=== PATIENT | female | born 1990 | race Caucasian/White ===

== ENCOUNTER 2019-03-25 18:44 | Emergency (ER) | payer OTHER, SELFPAY ==
--- OUTSIDE RECORDS SUMMARY | 2019-03-25 18:46 | XMS REPORT ---
:1990 Author Organization eClinicalWorks Care Team Providers Name Role Phone Billy Briggs Provider Role Unavailable Allergies, Adverse Reactions, Alerts Substance Reaction Event Type Latex eyes swell Drug Allergy Lisinopril cough Drug Allergy Hydrochlorothiazide Rash Drug Allergy Problems Problem Type Condition Code Onset Dates Condition Status Problem Chronic migraine without aura G43.709 Active without status migrainosus, not intractable Medications Medication Code Code Instructions Start End Status Dosage System Date Date Topiramate ER [facility] 27664791871 50 MG Orally September 27, Active 1 capsule Once a day 2017 Naprosyn [facility] 76186068089 500 MG Orally Active 1 tablet every 12 hrs with food or milk as needed Breo Ellipta [facility] 59625234959 100-25 MCG/INH Active 1 puff Inhalation Once a day Valsartan [facility] 37481965354 80 MG Orally Active 1 tablet Once a day EpiPen 2-Edwin [facility] 34081732140 0.3 MG/0.3ML Active as Injection directed Levocetirizine [facility] 44839242410 5 MG Orally Active 1 tablet Dihydrochloride Once a day in the evening Ventolin HFA [facility] 62950512768 108 (90 Base) Active 2 puffs as MCG/ACT needed Inhalation every 6 hrs Bromfed DM [facility] 87037122686 30-2-10 MG/5ML Active 10 ml as Orally every 4 needed hrs Flonase [facility] 20586794317 50 MCG/ACT Active 1 spray in Nasally Once a each day nostril Ondansetron HCl ND 19290270447 8 MG Orally Active 1 tablet Twice a day Symbicort [facility] 53212757646 160-4.5 MCG/ACT Active 2 puffs Inhalation Twice a day Triamcinolone [facility] 77378823720 0.1 % Active APPLY Acetonide THINLY TO RASH 3 TIMES DAILY NuvaRing [facility] 73514639273 0.12-0.015 Active 1 ring MG/24HR Vaginal Singulair ND 78467283101 10 MG Orally Active 1 tablet Once a day Results No Known Results Summary Purpose eClinicalWorks Submission
--- OUTSIDE RECORDS SUMMARY | 2019-03-25 18:46 | XMS REPORT ---
:1990 Author Organization eClinicalWorks Care Team Providers Name Role Phone Billy Briggs Provider Role Unavailable Allergies No Known Allergies Problems Problem Type Condition Code Onset Dates Condition Status Assessment Chronic migraine without aura G43.709 Active without status migrainosus, not intractable Problem Chronic migraine without aura G43.709 Active without status migrainosus, not intractable Assessment Body mass index (BMI) of 26.0-26.9 Z68.26 Active in adult Assessment Severe persistent acute asthmatic J45.50 Active bronchitis Assessment Elevated blood pressure reading R03.0 Active without diagnosis of hypertension Assessment Poison oak 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 Medications Medication Code Code Instructions Start End Status Dosage System Date Date Topiramate ER [facility] 93926215795 50 MG Orally September 27, Active 1 capsule Once a day 2018 Triamcinolone [facility] 43881457057 0.1 % Active APPLY Acetonide THINLY TO RASH 3 TIMES DAILY Breo Ellipta ND 37633854987 100-25 MCG/INH Active 1 puff Inhalation Once a day ProAir HFA [facility] 34094264007 108 (90 Base) Active 2 puffs as MCG/ACT needed Inhalation every 6 hrs HydrOXYzine HCl ND 18534951056 50 MG Orally October 19, Active 1 ml as every 8 hrs 2018 needed Results No Known Results Summary Purpose eClinicalWorks Submission
--- OUTSIDE RECORDS SUMMARY | 2019-03-25 18:46 | XMS REPORT ---
:1990 Author Organization eClinicalWorks Care Team Providers Name Role Phone Billy Briggs Provider Role Unavailable Allergies No Known Allergies Problems Problem Type Condition Code Onset Dates Condition Status Assessment Chronic migraine without aura G43.709 Active without status migrainosus, not intractable Problem Chronic migraine without aura G43.709 Active without status migrainosus, not intractable Assessment Radiculitis, cervical M54.12 Active Medications Medication Code Code Instructions Start End Status Dosage System Date Date Fioricet [facility] 22537280408 50-300-40 MG October 30October Active 1 capsule Orally every 4 2017 30, as needed hrs 2018 Topiramate ER ND 58966413696 50 MG Orally September 27, Active 1 capsule Once a day 2017 Breo Ellipta [facility] 95200318331 100-25 MCG/INH Active 1 puff Inhalation Once a day HydrOXYzine HCl ND 84585151481 50 MG Orally October 19, Active 1 ml as every 8 hrs 2018 needed Triamcinolone [facility] 27458843527 0.1 % Active APPLY Acetonide THINLY TO RASH 3 TIMES DAILY ProAir HFA [facility] 14552767326 108 (90 Base) Active 2 puffs as MCG/ACT needed Inhalation every 6 hrs Results No Known Results Summary Purpose eClinicalWorks Submission
--- OUTSIDE RECORDS SUMMARY | 2019-03-25 18:46 | XMS REPORT ---
:1990 Author Organization eClinicalWorks Care Team Providers Name Role Phone Noy Mcmanusy Provider Role Unavailable Allergies, Adverse Reactions, Alerts Substance Reaction Event Type Latex eyes swell Drug Allergy Lisinopril cough Drug Allergy Hydrochlorothiazide Rash Drug Allergy Problems Problem Type Condition Code Onset Dates Condition Status Problem Chronic migraine without aura G43.709 Active without status migrainosus, not intractable Problem Essential hypertension I10 Active Assessment Moderate asthma without J45.909 Active complication, unspecified whether persistent Assessment Weight gain R63.5 Active Assessment Chronic migraine without aura G43.709 Active without status migrainosus, not intractable Assessment Essential hypertension I10 Active Medications Medication Code Code Instructions Start End Status Dosage System Date Date Topiramate ER [facility] 24026172383 50 MG Orally September 27, Active 1 capsule Once a day 2017 Breo Ellipta [facility] 38713974332 100-25 MCG/INH Active 1 puff Inhalation Once a day Triamcinolone [facility] 69285128698 0.1 % Active APPLY Acetonide THINLY TO RASH 3 TIMES DAILY losartan ND 15611383166 20 mg PO once a November 20Feb 18, Active one tab day 2017 2018 daily ProAir HFA [facility] 79723439157 108 (90 Base) Active 2 puffs as MCG/ACT needed Inhalation every 6 hrs HydrOXYzine HCl ND 68022278780 50 MG Orally October 19, Active 1 ml as every 8 hrs 2018 needed Results No Known Results Summary Purpose eClinicalWorks Submission
--- NOTE | 2019-03-25 20:55 | EDPHYS ---
Physician Documentation [facility] Name: Gloria Ugarte Age: 28 yrs Sex: Female : 1990 Arrival Date: 03/25/2019 Time: 18:48 Bed 9 Private MD: Unknown, Unknown ED Physician Brett Momin HPI: 03/26 06:18 This 28 yrs old Female presents to ER via Ambulatory with complaints of Ankle tw4 Swelling, Foot Pain. 06:18 The patient presents with an injury. tw4 06:19 The complaints affect the left ankle. Onset: The symptoms/episode began/occurred 3 tw4 day(s) ago. Context: The problem was sustained at home, resulted from an unknown cause. Associated signs and symptoms: The patient has no apparent associated signs or symptoms. Severity of symptoms: At their worst the symptoms were mild, in the emergency department the symptoms are unchanged. The patient has not experienced similar symptoms in the past. 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 - Social history:: Smoking status: Patient/guardian denies using tobacco. - Ebola Screening: : Patient denies travel to an Ebola-affected area in the 21 days before illness onset. ROS: 03/26 06:19 Constitutional: Negative for fever, chills, and weight loss, Eyes: Negative for injury, tw4 pain, redness, and discharge. Cardiovascular: Negative for chest pain, palpitations, and edema, Respiratory: Negative for shortness of breath, cough, wheezing, and pleuritic chest pain, Abdomen/GI: Negative for abdominal pain, nausea, vomiting, diarrhea, and constipation, Back: Negative for injury and pain. MS/extremity: Positive for injury or acute deformity, decreased range of motion, swelling, Negative for abrasion, bite. Exam: 06:19 Constitutional: This is a well developed, well nourished patient who is awake, alert, tw4 and in no acute distress. Head/Face: Normocephalic, atraumatic. Cardiovascular: Regular rate and rhythm with a normal S1 and S2. No gallops, murmurs, or rubs. Normal PMI, no JVD. No pulse deficits. Respiratory: Lungs have equal breath sounds bilaterally, clear to auscultation and percussion. No rales, rhonchi or wheezes noted. No increased work of breathing, no retractions or nasal flaring. Abdomen/GI: Soft, non-tender, with normal bowel sounds. No distension or tympany. No guarding or rebound. No evidence of tenderness throughout. Back: No spinal tenderness. No costovertebral tenderness. Full range of motion. Neuro: Awake and alert, GCS 15, oriented to person, place, time, and situation. Cranial nerves II-XII grossly intact. Motor strength 5/5 in all extremities. Sensory grossly intact. Cerebellar exam normal. Normal gait. 06:19 Musculoskeletal/extremity: Extremities: noted in the right ankle, right Achilles and anterior aspect of right ankle: Vital Signs: 03/25 18:55 Pulse 92; Resp 18; Temp 98.3; Pulse Ox 100% on R/A; Weight 66.68 kg (R); Height 5 ft. 4 aj1 in. (162.56 cm) (R); Pain 10/10; 18:55 BP 161 / 115; aj1 20:54 BP 139 / 92; Pulse 89; Resp 18; Temp 98.5; Pulse Ox 97% on R/A; aa1 18:55 Body Mass Index 25.23 (66.68 kg, 162.56 cm) aj1 MDM: 20:46 Patient medically screened. tw4 03/26 06:21 Differential diagnosis: fracture, sprain. Data reviewed: vital signs, nurses notes. tw4 Data reviewed: diagnostic data from outside facility, old medical records, xrays were negative. Counseling: I had a detailed discussion with the patient and/or guardian regarding: the historical points, exam findings, and any diagnostic results supporting the discharge/admit diagnosis. Special discussion: I discussed with the patient/guardian in detail that at this point there is no indication for admission to the hospital. It is understood, however, that if the symptoms persist or worsen the patient needs to return immediately for re-evaluation. Administered Medications: No medications were administered Disposition: 03/25/19 20:55 Discharged to Home. Impression: Arthralgias. - Condition is Stable. - Discharge Instructions: Arthritis. - Prescriptions for Ibuprofen 800 mg Oral Tablet - take 1 tablet by ORAL route every 8 hours As needed take with food; 30 tablet. Tramadol 50 mg Oral Tablet - take 1 tablet by ORAL route every 8 hours as needed; 12 tablet. - Medication Reconciliation Form, Thank You Letter, Antibiotic Education, Prescription Opioid Use form. - Follow up: Unknown, Unknown; When: Upon discharge from the Emergency Department; Reason: Recheck today's complaints, Continuance of care. Follow up: Private Physician; When: Upon discharge from the Emergency Department; Reason: Recheck today's complaints, Continuance of care. - Problem is new. - Symptoms have improved. Signatures: Dispatcher [employer] [facility] Sonja Plascencia RN RN aj1 Joann Henry RN RN aa1 Brett Momin MD MD tw4 Corrections: (The following items were deleted from the chart) 03/25 20:53 18:59 Ankle Right 3 View+RAD.RAD.BRZ ordered. [facility] 21:09 20:55 03/25/2019 20:55 Discharged to Home. Impression: Arthralgias. Condition is aa1 Stable. Forms are Medication Reconciliation Form, Thank You Letter, Antibiotic Education, Prescription Opioid Use. Follow up: Unknown Unknown; When: Upon discharge from the Emergency Department; Reason: Recheck today's complaints, Continuance of care. Follow up: Private Physician; When: Upon discharge from the Emergency Department; Reason: Recheck today's complaints, Continuance of care. Problem is new. Symptoms have improved. tw4
--- NOTE | 2019-03-25 20:55 | ER ---
Nurse's Notes [facility] Name: Gloria Ugarte Age: 28 yrs Sex: Female : 1990 Arrival Date: 03/25/2019 Time: 18:48 Bed 9 Private MD: Unknown, Unknown Diagnosis: Arthralgias Presentation: 03/25 18:53 Presenting complaint: Patient states: She was shopping on Sunday and suddenly her ankle aj1 started feeling heavy and hurting. She was seen in the ER in [place] on Sunday and they did X-rays, they were normal, but she is still having pain and trouble walking on it. Denies injury to right ankle. Transition of care: patient was not received from another setting of care. Onset of symptoms was 2018. Risk Assessment: Do you want to hurt yourself or someone else? Patient reports no desire to harm self or others. Initial Sepsis Screen: Does the patient meet any 2 criteria? HR > 90 bpm. No. Patient's initial sepsis screen is negative. Does the patient have a suspected source of infection? No. Patient's initial sepsis screen is negative. Care prior to arrival: None. 18:53 Method Of Arrival: Ambulatory aj1 18:53 Acuity: SMITH 4 aj1 Triage Assessment: 18:55 General: Appears in no apparent distress. uncomfortable, Behavior is calm, cooperative, aj1 appropriate for age. Pain: Complains of pain in right ankle Pain currently is 10 out of 10 on a pain scale. Neuro: Level of Consciousness is awake, alert, obeys commands. Cardiovascular: Patient's skin is warm and dry. Respiratory: Airway is patent Respiratory effort is even, unlabored, Respiratory pattern is regular, symmetrical. Musculoskeletal: Range of motion: limited in right ankle. 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 - Social history:: Smoking status: Patient/guardian denies using tobacco. - Ebola Screening: : Patient denies travel to an Ebola-affected area in the 21 days before illness onset. Screenin:45 Abuse screen: Denies threats or abuse. Denies injuries from another. Nutritional aa1 screening: No deficits noted. Tuberculosis screening: No symptoms or risk factors identified. Fall Risk None identified. Assessment: 20:45 General: Appears in no apparent distress. uncomfortable, Behavior is calm, cooperative, aa1 appropriate for age. Pain: Complains of pain in right foot and right ankle Pain began 5 days ago Is continuous. Neuro: Level of Consciousness is awake, alert, obeys commands, Oriented to person, place, time, situation, Moves all extremities. Full function Gait is steady. Cardiovascular: Pulses are palpable in right dorsalis pedis artery and left dorsalis pedis artery. Respiratory: Airway is patent Respiratory effort is even, unlabored, Respiratory pattern is regular, symmetrical. GI: No signs and/or symptoms were reported involving the gastrointestinal system. : No signs and/or symptoms were reported regarding the genitourinary system. EENT: No signs and/or symptoms were reported regarding the EENT system. Derm: Skin is intact, is healthy with good turgor, Skin is pink, warm \T\ dry. Musculoskeletal: Circulation, motion, and sensation intact. Capillary refill < 3 seconds, Range of motion: limited in right ankle Swelling present in right foot and right ankle. 21:08 Reassessment: Patient appears in no apparent distress at this time. Patient is alert, aa1 oriented x 3, equal unlabored respirations, skin warm/dry/pink. Discussed d/c \T\ f/u instructions with pt; denies questions or concerns at this time. Ambulatory to lobby with steady gait. Vital Signs: 18:55 Pulse 92; Resp 18; Temp 98.3; Pulse Ox 100% on R/A; Weight 66.68 kg (R); Height 5 ft. 4 aj1 in. (162.56 cm) (R); Pain 10/10; 18:55 BP 161 / 115; aj1 20:54 BP 139 / 92; Pulse 89; Resp 18; Temp 98.5; Pulse Ox 97% on R/A; aa1 18:55 Body Mass Index 25.23 (66.68 kg, 162.56 cm) aj1 ED Course: 18:48 Patient arrived in ED. ag5 18:48 Unknown, Unknown is Private Physician. ag5 18:54 Triage completed. aj1 20:25 Brett Momin MD is Attending Physician. tw4 20:45 Patient has correct armband on for positive identification. Bed in low position. Call aa1 light in reach. Pulse ox on. NIBP on. 20:45 No provider procedures requiring assistance completed. Patient did not have IV access aa1 during this emergency room visit. 20:48 Joann Henry, RN is Primary Nurse. aa1 20:51 Unknown, Unknown is Referral Physician. tw4 Administered Medications: No medications were administered Outcome: 20:55 Discharge ordered by . tw4 21:08 Discharged to home ambulatory, with family. aa1 21:08 Condition: good 21:08 Discharge instructions given to patient, Instructed on discharge instructions, follow up and referral plans. medication usage, Demonstrated understanding of instructions, follow-up care, medications, Prescriptions given X 2. 21:09 Patient left the ED. aa1 Signatures: Sonja Plascencia RN RN aj Joann Henry RN RN aa Brett Momin MD MD 4 Mohinder Carver 5
[2019-03-25 21:39] VITALS: BP 139/92; TEMP 98.5; O2SAT 97
== END 2019-03-25 21:09 | disposition home or self-care (01) ==
LOC: ER 18:44
DX: M25.571 Pain in right ankle and joints of right foot (principal)
CPT/HCPCS: 99283